=== PATIENT | male | born 1965 | race Caucasian/White ===

== ENCOUNTER 2016-12-06 20:07 | Emergency (ER) | payer SELFPAY ==
[~2016-12-06] VITALS: Ht 165.1 cm; Wt 90.4 kg
[2016-12-06 23:12] LABS: BASOPHIL COUNT 0.1 K/uL (0-0.1); EOSINOPHIL (%) 2.3 % (0-5); EOSINOPHIL COUNT 0.2 K/uL (0-0.3); HEMATOCRIT 51.1 % (38.0-50.0); IMMATURE GRANULOCYTE (%) 0.5 % (0.0-0.7); LYMPHOCYTE COUNT 3.1 K/uL (1.0-2.8); MCH 34.2 PG (29.0-34.0); MCHC 34.2 G/DL (30.0-36.0); MEAN PLAT.VOLUME 9.1 uM^3 (9.0-12.4); MONOCYTE (%) 9.8 % (3-12); MONOCYTE COUNT 0.8 K/uL (0-0.8); NEUTROPHIL (%) 48.5 % (45-76); PLATELET COUNT 270 K/uL (156-360); RBC DIS.WIDTH-CV 12.3 % (11.8-14.6); RED BLOOD COUNT 5.11 M/uL (4.00-5.50); WHITE BLOOD COUNT 8.2 K/uL (4.1-10.2)
[2016-12-06 23:21] LABS: CHLORIDE 108 mEq/L (99-109); POTASSIUM 3.8 mEq/L (3.7-5.4); SODIUM 142 mEq/L (136-147)
[2016-12-06 23:23] LABS: GLUCOSE 93 mg/dL (70-99)
[2016-12-06 23:24] LABS: ANION GAP 12 MEQ/L (2-14)
[2016-12-06 23:25] LABS: TOTAL BILIRUBIN 0.4 mg/dL (0.0-1.0)
[2016-12-06 23:26] LABS: ALKALINE PHOSPHATASE 65 IU/L (3-129)
[2016-12-06 23:27] LABS: GFR ESTIMATE (CALCULATED) > 59 mL/min/
[2016-12-06 23:28] LABS: UREA NITROGEN (BUN) 7 mg/dL (9-23)
[2016-12-06 23:30] LABS: LIPASE 40 U/L (1.0-51.0)
[2016-12-07] MEDS ORDERED: LIBRIUM25 MG PO (00:16)
[2016-12-07 00:51] VITALS: BP 126/71
== END 2016-12-07 00:52 | disposition home or self-care (01) ==
LOC: EME 20:07
PROVIDERS: Emergency Medicine
DX: F10.229 Alcohol dependence with intoxication, unspecified (principal)
CPT/HCPCS: 80053; 83690; 85025; 99281; 99284